=== PATIENT | male | born 1935 | race Asian ===

== ENCOUNTER 2019-01-29 15:06 | Emergency (ER) | payer OTHER, SELFPAY ==
[2019-01-29] VITALS (9 sets, daily range): BP systolic 117–149; BP diastolic 52–78; PULSE 65–87; RESP 14–21; TEMP 36.6; O2SAT 93–99
--- NOTE | 2019-01-29 15:07 | DI.CT.S_ITS ---
PROCEDURE: CT HEAD/BRAIN WO CON INDICATIONS: stroke like symptoms TECHNIQUE: Noncontrast 4.5 mm thick angled axial sections acquired from the foramen magnum to the vertex, with coronal and sagittal reformats. For radiation dose reduction, the following was used: automated exposure control, adjustment of mA and/or kV according to patient size. COMPARISON: [facility], CT, HEAD WITHOUT CONTRAST, 07/25/2014, 20:15. FINDINGS: Image quality: Excellent. CSF spaces: Basal cisterns are patent. No extra-axial fluid collections. There is mass effect upon the frontal horn and body of the left lateral ventricle. Brain: No intracranial bleeds or masses. The there is ill-defined rounded low density within the left anterolateral frontal lobe measuring roughly 76 mm anteroposterior by 52 mm transverse, by roughly 55 mm craniocaudal. There is peripheral low density within this lesion, as well as evidence of internal necrosis. There is diffuse sulcal effacement overlying the left frontal lobe. There is roughly 6 mm of rightward subfalcine herniation. There is cerebral volume loss for age, with resultant ventricular and sulcal prominence. There are periventricular and deep white matter chronic small vessel ischemic changes. There is intracranial internal carotid artery atherosclerosis. Skull and face: Calvarium and visualized facial bones appear intact, without suspicious lesions. Sinuses: Visualized sinuses and mastoids are clear. IMPRESSION: 1. Mass lesion involving the left frontal lobe. Further assessment with brain MRI with and without intravenous contrast is recommended. 2. Mild rightward subfalcine herniation. Dictated by: Jose Hair M.D. on 01/29/2019 at 15:26 Approved by: Jose Hair M.D. on 01/29/2019 at 15:29
[2019-01-29 15:20] LABS: Add Manual Diff / Slide Review NO; Basophils Absolute Auto 100 /uL (0-100); Basophils Percent Auto 0.9 % (0-2); Eosinophils Absolute Auto 100 /uL (0-450); Eosinophils Percent Auto 1.4 % (2-4); Hematocrit 37.9 % (41-53); Lymphocytes Absolute Auto 1300 /uL (1100-4500); Lymphocytes Percent Auto 17.7 % (25-40); Mean Corpuscular HGB Conc 31.6 % (30-36); Mean Corpuscular Hemoglobin 29.6 PG (26-34); Mean Corpuscular Volume 93.7 fL (80-100); Monocytes Absolute Auto 600 /uL (0-900); Monocytes Percent Auto 7.6 % (3-14); Neutrophils Absolute Auto 5300 /uL (1500-7000); Neutrophils Percent Auto 72.4 % (50-75); Platelet Count 234 X10^3/uL (150-400); Red Blood Cell Count 4.05 X10^6/uL (4.5-5.9); Red Cell Distribution Width 13.3 % (11.6-14.8); White Blood Cell Count 7.3 X10^3/uL (4.5-11.0)
--- NOTE | 2019-01-29 15:20 | ED.AMS ---
HPI - Altered Mental Status General Chief Complaint: Altered Mental Status Stated Complaint: Slurred speech Time Seen by Provider: 01/29/19 15:10 Source: patient, family and EMS Mode of arrival: EMS Limitations: no limitations History of Present Illness HPI narrative: 84-year-old nonsmoking male with history of prostate cancer, renal failure and hypertension presents by EMS for evaluation of mental status change and difficulty speaking. Additionally he lost control of his bladder. There is no perceived injury. there is very little story contributed by EMS but no trauma reported. He has not seen his PCP in over 1 year. MD complaint: altered mental status, confusion and decreased responsiveness Onset (ago): hour(s) Severity: moderate Consistency of symptoms: constant Associated symptoms: denies other symptoms Related Data Allergies Allergy/AdvReac Type Severity Reaction Status Date / Time No Known Drug Allergies Allergy Verified 01/29/19 15:49 Review of Systems Constitutional Denies chills, Denies fever(s), Denies lethargy and Denies weakness Eyes Denies change in vision, Denies eye discharge, Denies irritation and Denies loss of vision ENT Ears, Nose, Mouth, and Throat: Denies change in voice, Denies neck pain and Denies sore throat Cardiovascular Denies chest pain, Denies irregular heart rhythm, Denies lightheadedness, Denies palpitations, Denies dyspnea, Denies dyspnea on exertion and Denies orthopnea Respiratory Denies cough, Denies dyspnea, Denies dyspnea on exertion and Denies wheezing Gastrointestinal Gastrointestinal: Denies abdominal pain, Denies change in bowel habits, Denies diarrhea, Denies nausea and Denies vomiting Genitourinary Denies hematuria, Denies flank pain, Denies urinary incontinence and Denies urinary urgency Musculoskeletal Denies neck pain Integumentary/Breasts Denies pruritus, Denies erythema, Denies rash and Denies wounds Neurologic Reports confusion, Denies loss of vision and Denies weakness Psychiatric Denies anxiety, Reports confusion, Denies depression, Denies homicidal ideation and Denies suicidal ideation Endocrine Denies palpitations Hematologic/Lymphatic Denies easy bruising Allergic/Immunologic Denies wheezing Exam Narrative Exam Narrative: GENERAL: 84M with flat affect, difficulty in communicating, slurred speech HEAD: Atraumatic. Normocephalic. No temporal or scalp tenderness. EYES: Pupils equal round and reactive. Extraocular motions intact. No scleral icterus. No injection or drainage. ENT: Nose without bleeding, purulent drainage or septal hematoma. Throat without erythema, tonsillar hypertrophy or exudate. Uvula midline. Airway patent. NECK: Trachea midline. No JVD or lymphadenopathy. Supple, nontender, no meningeal signs. CARDIOVASCULAR: Regular rate and rhythm without murmurs, gallops, or rubs. RESPIRATORY: Clear to auscultation. Breath sounds equal bilaterally. No wheezes, rales, or rhonchi. GASTROINTESTINAL: Abdomen soft, non-tender, nondistended. No hepato-splenomegaly, or palpable masses. No guarding. EXTREMITIES: No clubbing, cyanosis, or edema. No joint tenderness, effusion, or edema noted. BACK: Nontender without deformity or crepitance. No flank tenderness. NEURO: Confusion. SKIN: No rash or erythema. Initial Vital Signs Initial Vital Signs: Vital Signs Temperature 97.8 F 01/29/19 15:19 Pulse Rate 74 01/29/19 15:19 Respiratory Rate 18 01/29/19 15:19 Blood Pressure 123/59 L 01/29/19 15:19 Pulse Oximetry 95 01/29/19 15:19 Scores NIH Stroke Scale Level of Conciousness: Alert, keenly responsive Ask month/age: Answers both questions correctly. Open/close eyes, close hand: Performs both tasks correctly Best gaze horizontal: Normal Visual peter: No visual loss Facial palsy: Minor paralysis, flattened nasolabial fold, asymmetry on smiling Left arm drift: No drift for full 10 sec Right arm drift: No drift for full 10 sec Left leg drift: No drift for full 10 sec Right leg drift: No drift for full 10 sec Limb ataxia: Absent Sensory on face/arms/legs: Normal, no sensory loss Best language: Severe aphasia, not much is understood, fragmented Dysarthria: Mild to mod,some slurring Extinction or inattention: No abnormality Total NIH Stroke scale score: 4 Course Course Narrative: patient signed out to Dr. Gaines [id number] Orders Ordered: ED Orders 01/29/19 12:23 Comprehensive Metabolic Panel Stat Lipase Stat Troponin & CK Cardiac Panel Stat 01/29/19 15:07 CT head/brain wo con Stat 01/29/19 15:16 Complete Blood Count AUTO DIFF Stat Partial Thromboplastin Time Stat Prothrombin Time INR Stat 01/29/19 15:25 XR chest 1V Stat EKG-12 Lead Stat 01/29/19 16:01 CT angio head and neck Stat Discontinued Medications Dexamethasone (Decadron) 10 mg IV NOW ONE Stop: 01/29/19 15:45 Last Admin: 01/29/19 15:49 Dose: 10 mg Levetiracetam 1,000 mg/ Sodium (Chloride) 110 mls @ 440 mls/hr IV NOW ONE Stop: 01/29/19 16:49 Last Infusion: 01/29/19 17:33 Dose: 0 mls/hr Admin: 01/29/19 17:06 Dose: 440 mls/hr Lidocaine HCl (Urojet) 5 ml TOP NOW ONE Stop: 01/29/19 15:52 Last Admin: 01/29/19 16:05 Dose: 5 ml Reevaluation(s) Reevaluation #1: god son now at bedside. Notes symptoms over about a month, today's presentation a drastic change from baseline Consultations Consultation #1: [facility] They are consulting with Eloina GREGORY. Happy with Decadron, request Keppra 1000. Eloina has accepted through [facility]. They will arrange transport and assign a bed a bit later Consultation #2: [facility] Cardio consulted regarding EKG changes, she states this is likely due to cerebral events Vital Signs - 8 hr 01/29/19 15:19 01/29/19 15:37 01/29/19 17:06 Temperature 97.8 F Pulse Rate 74 76 85 Respiratory Rate 18 19 18 Blood Pressure 123/59 L Blood Pressure [Left Arm] 128/58 L 128/60 Pulse Oximetry 95 95 97 MDM - Altered Mental Status Lab Data Result diagrams: 01/29/19 15:16 01/29/19 12:23 Lab Results 01/29/19 01/29/19 01/29/19 Range/Units 12:23 15:16 15:16 WBC 7.3 (4.5-11.0) X10^3/uL RBC 4.05 L (4.5-5.9) X10^6/uL Hgb 12.0 L (13.5-17.5) g/dL Hct 37.9 L (41-53) % MCV 93.7 (80-100) fL MCH 29.6 (26-34) PG MCHC 31.6 (30-36) % RDW 13.3 (11.6-14.8) % Plt Count 234 (150-400) X10^3/uL Neut % (Auto) 72.4 (50-75) % Lymph % (Auto) 17.7 L (25-40) % [place] % (Auto) 7.6 (3-14) % Eos % (Auto) 1.4 L (2-4) % Baso % (Auto) 0.9 (0-2) % Neut # (Auto) 5300 (5149-1653) /uL Lymph # (Auto) 1300 (6636-9918) /uL [place] # (Auto) 600 (0-900) /uL Eos # (Auto) 100 (0-450) /uL Baso # (Auto) 100 (0-100) /uL PT 10.9 (10.1-12.7) SECONDS INR 0.9 (0.9-1.3) APTT 30 (26.4-36.2) SECONDS Sodium 137 (137-145) mmol/L Potassium 4.5 (3.4-5.1) mmol/L Chloride 105 (98-107) mmol/L Carbon Dioxide 22 (22-32) mmol/L BUN 31 H (9-20) mg/dL Creatinine 2.30 H (0.66-1.25) mg/dL Estimated GFR 27.2 L (>60) mL/min BUN/Creatinine Ratio 13.5 (6-22) Glucose 93 (80-110) mg/dL Calcium 8.8 (8.4-10.2) mg/dL Total Bilirubin 0.5 (0.2-1.3) mg/dL AST 21 (17-59) IU/L ALT 20 L (21-72) IU/L Alkaline Phosphatase 62 (38-126) U/L Total Creatine Kinase 83 (55-170) U/L CK-MB (CK-2) TNP CK-MB (CK-2) Rel Index TNP Troponin I 0.072 H (0.01-0.034) ng/mL Total Protein 6.6 (6.3-8.2) g/dL Albumin 3.7 (3.5-5.0) g/dL Globulin 2.9 (1.7-4.1) g/dL Albumin/Globulin Ratio 1.3 (1.0-2.8) Lipase 220 (23-300) U/L Imaging Data CT scan - head: Radiologist's impression: Patient: Brandon Beltrán R#: [id number] : 5Acct:[id number] Age/Sex: 84 / MDate of Service: 01/29/19 Loc: ED Accession Number: [id number] Procedure: CT angio head and neck Ordering Provider: Angel Patel D.O. PROCEDURE: CT ANGIO HEAD AND NECK INDICATIONS: stroke vs. mass TECHNIQUE: Pre-contrast images were performed previously and not repeated. After the administration of intravenous contrast, 1 mm thick sections acquired from the aortic arch through the [place] of [place]. Post-contrast 4.5 mm thick sections then re-acquired from the foramen magnum to the vertex. 3-dimensional hhebyud-vcjzdknta-outjfzwunl (MIP) and/or volume rendering reformats were acquired of the central intracranial vasculature and neck separately. COMPARISON: [facility], CT, CT HEAD/BRAIN WO CON, 01/29/2019, 15:10. [facility], CT, HEAD WITHOUT CONTRAST, 07/25/2014, 20:15. [facility], MR, STROKE PROTOCOL, 07/27/2014, 13:13. FINDINGS: Image quality: Excellent. BRAIN: CSF spaces: Basal cisterns are patent. No extra-axial fluid collections. Brain: There is an irregular mass seen centered within the left frontal lobe, with edge enhancement and a necrotic center. There is moderate prominent surrounding edema seen. This mass measures approximately 8.5 cm AP by 5.5 cm transversely, with a craniocaudal extent of 5.3 cm. There is mass effect seen, with mild subfalcine herniation, with midline shift of 8 mm. There is relatively prominent narrowing of the left lateral ventricle. Gonzalez-white matter interface appears intact. The degree matter overlying the mass is relatively intact. Skull and face: Calvarium and facial bones appear intact, without suspicious lesions. Orbits appear normal. Sinuses: Sinuses and mastoids are clear. HEAD CT ANGIOGRAPHY: Anterior circulation: Intracranial internal carotid arteries are normal in size and flow. The flow within the paired anterior cerebral arteries is normal and symmetric. The flow within the middle cerebral arteries is normal and symmetric. The anterior communicating artery is seen. No aneurysms are seen. Posterior circulation: Within the distal left vertebral artery, there is focal calcification seen, with at least 80% narrowing, as on series 4 image 98 and on series 14 image 27. New left vertebral artery is dominant to the right. The basilar artery is unremarkable. Flow within the posterior cerebral arteries is normal and symmetric. No aneurysms are seen. NECK CT ANGIOGRAPHY: Carotid system: The great vessels demonstrate a conventional anatomy as they arise from the aortic arch. The origins of the common carotid arteries appear patent. The common carotid arteries demonstrate normal caliber and courses. The bifurcation regions demonstrate atherosclerotic irregularity. No hemodynamically significant stenosis is seen of the internal carotid arteries. Posterior circulation: There is approximately 50% narrowing seen at the origin of the left vertebral artery. The origin of the right vertebral artery is patent. The left vertebral artery is dominant to the right. Soft tissues: Visualized neck soft tissues demonstrate no suspicious abnormalities. The thyroid is again noted to be enlarged. Bones: No suspicious bony lesions. Visualized cervical spine appears normally aligned. Relatively prominent bony degenerative changes are seen. IMPRESSION: There is an 8.5 cm mass within the left frontal lobe. There is enhancement along its margin and a necrotic center. There is associated mass effect and surrounding edema. There is midline shift of 8 mm, subfalcine herniation, and narrowing of the left lateral ventricle. A neurosurgical consultation is recommended. 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 50% narrowing of the origin of the left vertebral artery. Any quantitative measurements of stenosis were performed using NASCET criteria. Dictated by: Leo Sinha M.D. on 01/29/2019 at 15:48 Approved by: Leo Sinha M.D. on 01/29/2019 at 15:59 CTA Head/Neck: Radiologist's impression: [place] [address] CT Scan Report Signed Patient: Brandon Beltrán R#: [id number] : 5Acct:[id number] Age/Sex: 84 / MDate of Service: 01/29/19 Loc: ED Accession Number: [id number] Procedure: CT angio head and neck Ordering Provider: Angel Patel D.O. PROCEDURE: CT ANGIO HEAD AND NECK INDICATIONS: stroke vs. mass TECHNIQUE: Pre-contrast images were performed previously and not repeated. After the administration of intravenous contrast, 1 mm thick sections acquired from the aortic arch through the [place] of [place]. Post-contrast 4.5 mm thick sections then re-acquired from the foramen magnum to the vertex. 3-dimensional eafsdjd-cblbjpovz-yelpnnotbq (MIP) and/or volume rendering reformats were acquired of the central intracranial vasculature and neck separately. COMPARISON: [facility], CT, CT HEAD/BRAIN WO CON, 01/29/2019, 15:10. [facility], CT, HEAD WITHOUT CONTRAST, 07/25/2014, 20:15. [facility], MR, STROKE PROTOCOL, 07/27/2014, 13:13. FINDINGS: Image quality: Excellent. BRAIN: CSF spaces: Basal cisterns are patent. No extra-axial fluid collections. Brain: There is an irregular mass seen centered within the left frontal lobe, with edge enhancement and a necrotic center. There is moderate prominent surrounding edema seen. This mass measures approximately 8.5 cm AP by 5.5 cm transversely, with a craniocaudal extent of 5.3 cm. There is mass effect seen, with mild subfalcine herniation, with midline shift of 8 mm. There is relatively prominent narrowing of the left lateral ventricle. Gonzalez-white matter interface appears intact. The degree matter overlying the mass is relatively intact. Skull and face: Calvarium and facial bones appear intact, without suspicious lesions. Orbits appear normal. Sinuses: Sinuses and mastoids are clear. HEAD CT ANGIOGRAPHY: Anterior circulation: Intracranial internal carotid arteries are normal in size and flow. The flow within the paired anterior cerebral arteries is normal and symmetric. The flow within the middle cerebral arteries is normal and symmetric. The anterior communicating artery is seen. No aneurysms are seen. Posterior circulation: Within the distal left vertebral artery, there is focal calcification seen, with at least 80% narrowing, as on series 4 image 98 and on series 14 image 27. New left vertebral artery is dominant to the right. The basilar artery is unremarkable. Flow within the posterior cerebral arteries is normal and symmetric. No aneurysms are seen. NECK CT ANGIOGRAPHY: Carotid system: The great vessels demonstrate a conventional anatomy as they arise from the aortic arch. The origins of the common carotid arteries appear patent. The common carotid arteries demonstrate normal caliber and courses. The bifurcation regions demonstrate atherosclerotic irregularity. No hemodynamically significant stenosis is seen of the internal carotid arteries. Posterior circulation: There is approximately 50% narrowing seen at the origin of the left vertebral artery. The origin of the right vertebral artery is patent. The left vertebral artery is dominant to the right. Soft tissues: Visualized neck soft tissues demonstrate no suspicious abnormalities. The thyroid is again noted to be enlarged. Bones: No suspicious bony lesions. Visualized cervical spine appears normally aligned. Relatively prominent bony degenerative changes are seen. IMPRESSION: There is an 8.5 cm mass within the left frontal lobe. There is enhancement along its margin and a necrotic center. There is associated mass effect and surrounding edema. There is midline shift of 8 mm, subfalcine herniation, and narrowing of the left lateral ventricle. A neurosurgical consultation is recommended. 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 50% narrowing of the origin of the left vertebral artery. Any quantitative measurements of stenosis were performed using NASCET criteria. Dictated by: Leo Sinha M.D. on 01/29/2019 at 15:48 Approved by: Leo Sinha M.D. on 01/29/2019 at 15:59 Discharge Plan Departure Patient Disposition: [facility] Clinical Impression: Frontal mass of brain Referrals: Evangelista Celestin MD [Primary Care Provider] -
--- NOTE | 2019-01-29 15:25 | DI.RAD.S_ITS ---
PROCEDURE: XR CHEST 1V INDICATIONS: chest pain TECHNIQUE: One view of the chest was acquired. COMPARISON: None. FINDINGS: Surgical changes and devices: An intracardiac device is projected over the right heart. Lungs and pleura: Lungs are clear. No pleural effusions or pneumothorax. Mediastinum: Mediastinal contours appear normal. Heart size is normal. Bones and chest wall: No suspicious bony lesions. Overlying soft tissues appear unremarkable. IMPRESSION: No acute cardiopulmonary findings. Dictated by: Claudette Coulter M.D. on 01/29/2019 at 15:51 Approved by: Claudette Coulter M.D. on 01/29/2019 at 15:52
[2019-01-29 15:26] LABS: INR 0.9 (0.9-1.3); Prothrombin Time 10.9 SECONDS (10.1-12.7)
[2019-01-29 15:28] LABS: PTT Partial Thromboplastin Tim 30 SECONDS (26.4-36.2)
[2019-01-29] MEDS: DEXAMETHASONE 10 MG/ML VIAL IV (15:49)
--- NOTE | 2019-01-29 16:01 | DI.CT.S_ITS ---
PROCEDURE: CT ANGIO HEAD AND NECK INDICATIONS: stroke vs. mass TECHNIQUE: Pre-contrast images were performed previously and not repeated. After the administration of intravenous contrast, 1 mm thick sections acquired from the aortic arch through the [place] of [place]. Post-contrast 4.5 mm thick sections then re-acquired from the foramen magnum to the vertex. 3-dimensional linzzwk-sarajzvse-lgjzdzaljw (MIP) and/or volume rendering reformats were acquired of the central intracranial vasculature and neck separately. COMPARISON: [facility], CT, CT HEAD/BRAIN WO CON, 01/29/2019, 15:10. [facility], CT, HEAD WITHOUT CONTRAST, 07/25/2014, 20:15. [facility], MR, STROKE PROTOCOL, 07/27/2014, 13:13. FINDINGS: Image quality: Excellent. BRAIN: CSF spaces: Basal cisterns are patent. No extra-axial fluid collections. Brain: There is an irregular mass seen centered within the left frontal lobe, with edge enhancement and a necrotic center. There is moderate prominent surrounding edema seen. This mass measures approximately 8.5 cm AP by 5.5 cm transversely, with a craniocaudal extent of 5.3 cm. There is mass effect seen, with mild subfalcine herniation, with midline shift of 8 mm. There is relatively prominent narrowing of the left lateral ventricle. Gonzalez-white matter interface appears intact. The degree matter overlying the mass is relatively intact. Skull and face: Calvarium and facial bones appear intact, without suspicious lesions. Orbits appear normal. Sinuses: Sinuses and mastoids are clear. HEAD CT ANGIOGRAPHY: Anterior circulation: Intracranial internal carotid arteries are normal in size and flow. The flow within the paired anterior cerebral arteries is normal and symmetric. The flow within the middle cerebral arteries is normal and symmetric. The anterior communicating artery is seen. No aneurysms are seen. Posterior circulation: Within the distal left vertebral artery, there is focal calcification seen, with at least 80% narrowing, as on series 4 image 98 and on series 14 image 27. New left vertebral artery is dominant to the right. The basilar artery is unremarkable. Flow within the posterior cerebral arteries is normal and symmetric. No aneurysms are seen. NECK CT ANGIOGRAPHY: Carotid system: The great vessels demonstrate a conventional anatomy as they arise from the aortic arch. The origins of the common carotid arteries appear patent. The common carotid arteries demonstrate normal caliber and courses. The bifurcation regions demonstrate atherosclerotic irregularity. No hemodynamically significant stenosis is seen of the internal carotid arteries. Posterior circulation: There is approximately 50% narrowing seen at the origin of the left vertebral artery. The origin of the right vertebral artery is patent. The left vertebral artery is dominant to the right. Soft tissues: Visualized neck soft tissues demonstrate no suspicious abnormalities. The thyroid is again noted to be enlarged. Bones: No suspicious bony lesions. Visualized cervical spine appears normally aligned. Relatively prominent bony degenerative changes are seen. IMPRESSION: There is an 8.5 cm mass within the left frontal lobe. There is enhancement along its margin and a necrotic center. There is associated mass effect and surrounding edema. There is midline shift of 8 mm, subfalcine herniation, and narrowing of the left lateral ventricle. A neurosurgical consultation is recommended. 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 50% narrowing of the origin of the left vertebral artery. Any quantitative measurements of stenosis were performed using NASCET criteria. Dictated by: Leo Sinha M.D. on 01/29/2019 at 15:48 Approved by: Leo Sinha M.D. on 01/29/2019 at 15:59
[2019-01-29] MEDS: LIDOCAINE 2% (UROJET) 5 ML GEL TOP (16:05)
--- NOTE | 2019-01-29 16:15 | PC.NURSE ---
flattening of the nasolabial folds and face on the left.
--- NOTE | 2019-01-29 16:21 | PC.NURSE ---
Spoke w/ EMT-P's. Pt was found in his car at [facility]. Pt had been incontinent of urine. Pt able to follow directions and able to answer yes / known questions. Pt has NO NEXT OF KIN LISTED. Called his PCP who has PT refused under person to list in case of emergency. I asked pt if he wanted us to call anyone, shook his head No. Clip board w/ paper and pen at bedside to see if he can write to better communicate.
[2019-01-29] MEDS: levETIRAcetam 1,000 MG in SODIUM CHLORIDE 0.9% 100 ML 440 ML IV (17:06)
[2019-01-29 17:42] LABS: Alanine Aminotransferase 20 IU/L (21-72); Albumin 3.7 g/dL (3.5-5.0); Albumin Globulin Ratio 1.3 (1.0-2.8); Alkaline Phosphatase 62 U/L (38-126); Aspartate Aminotransferase 21 IU/L (17-59); BUN Creatinine Ratio 13.5 (6-22); Bilirubin Total 0.5 mg/dL (0.2-1.3); Blood Urea Nitrogen 31 mg/dL (9-20); Calcium 8.8 mg/dL (8.4-10.2); Carbon Dioxide 22 mmol/L (22-32); Chloride 105 mmol/L (98-107); Creatine Kinase 83 U/L (55-170); Estimated Glomerular Filt Rate 27.2 mL/min (>60); Globulin 2.9 g/dL (1.7-4.1); Glucose 93 mg/dL (80-110); HEMOLYSIS < 15 (0-50); Lipase 220 U/L (23-300); Potassium 4.5 mmol/L (3.4-5.1); Sodium 137 mmol/L (137-145); Total Protein 6.6 g/dL (6.3-8.2)
[2019-01-29 17:53] LABS: Troponin I 0.072 ng/mL (0.01-0.034)
--- NOTE | 2019-01-29 23:12 | PC.NURSE ---
PT Theodore winters called and updated on pt ETA for transfer to [facility] per pt cayetano.
== END 2019-01-30 00:30 | disposition short-term general hospital (02) ==
PROVIDERS: Emergency Medicine; Emergency Provider Emergency Medicine; PCP Family Medicine
DX: G93.9 Disorder of brain, unspecified (principal); R47.01 Aphasia; R41.82 Altered mental status, unspecified; R29.810 Facial weakness
CPT/HCPCS: 36591; 51701; 70450; 70496; 70498; 71045; 80053; 82550; 83690; 84484; 85025; 85610; 85730; 93005; 93010; 96365; 96375; 99285; J1100; J1953; Q9967